=== PATIENT | female | born 1930 | race Caucasian/White ===

== ENCOUNTER 2018-01-24 01:39 | Observation (INO) | payer OTHER ==
[2018-01-24 02:10] LABS: Absolute Lymphocytes (CBC) 1.6 K/uL (0.7-4.9); Basophils % 0.7 % (0-1.3); Eosinophils % 3.4 % (0-4.4); Hematocrit 37.6 % (36.0-45.0); Lymphocytes % 15.7 % (15.3-44.8); MCH 28.1 pg (27.0-35.0); MCV 82.6 fL (80-100); MPV 7.5 fL (7.6-11.3); Monocytes % 9.8 % (3.3-12.3); RBC Red Blood Cell Count 4.55 M/uL (3.86-4.86)
[2018-01-24] MEDS ORDERED: MORPHINE 4 MG/ML SYR ONE ×2 (02:24→05:42)
[2018-01-24] MEDS ORDERED: ONDANSETRON 4 MG/2 ML VIAL ONE (02:24)
[2018-01-24 03:29] LABS: Albumin 2.7 g/dL (3.4-5.0); Bilirubin Direct 0.2 mg/dL (0-0.2); Bilirubin Total 0.5 mg/dL (0.2-1.0); Potassium 4.2 mmol/L (3.5-5.1); Protein, Total 7.5 g/dL (6.4-8.2)
[2018-01-24] MEDS ORDERED: cloNIDine HCl 0.1 MG TAB ONE (04:04)
[2018-01-24 05:37] LABS: Urine Blood 2+ (NEG); Urine Glucose NEGATIVE (NEG); Urine Protein NEGATIVE (NEG); Urine Specific Gravity 1.015 (1.005-1.030); Urine pH 6.5 (5.0-7.0)
[2018-01-24 05:40] LABS: Urine Bacteria <20 /HPF (<20); Urine Culture Reflex Order REFLEXED; Urine RBC <5 /HPF (NONE SEEN)
[2018-01-24] MEDS ORDERED: HYDROCODONE/APAP 10/325 TAB PO PRN (05:40)
[2018-01-24] MEDS ORDERED: ACETAMINOPHEN 500 MG TAB PO PRN (05:40)
[2018-01-24] MEDS ORDERED: ALPRAZOLAM 0.25 MG TABLET PO PRN (05:40)
--- NOTE | 2018-01-24 06:18 | ER ---
Nurse's Notes [facility] Name: Vida Teresa Age: 87 yrs Sex: Female : 1930 Arrival Date: 01/24/2018 Time: 01:40 Bed 8 Private MD: Diagnosis: Metastatic lung cancer Presentation: 01/24 01:42 Presenting complaint: EMS states: RIGHT FLANK FOR A MONTH, WORSE TONIGHT. Transition of fc care: [facility]. Onset of symptoms is unknown. Risk Assessment: Do you want to hurt yourself or someone else? Patient reports no desire to harm self or others. Initial Sepsis Screen: Does the patient meet any 2 criteria? No. Patient's initial sepsis screen is negative. Does the patient have a suspected source of infection? No. Patient's initial sepsis screen is negative. Care prior to arrival: Glucose check: 137. 01:42 Acuity: NAVEED 3 fc 01:42 Method Of Arrival: EMS: [facility] bp Triage Assessment: 01:44 General: Appears in no apparent distress. comfortable, Behavior is calm, cooperative, fc appropriate for age. Pain: Complains of pain in posterior aspect of right lateral abdomen and anterior aspect of right lateral abdomen Pain currently is 6 out of 10 on a pain scale. EENT: No deficits noted. Neuro: Level of Consciousness is awake, alert, obeys commands, Oriented to person, place, time, situation, Appropriate for age. Cardiovascular: No deficits noted. Respiratory: Airway is patent Respiratory effort is even, unlabored, Respiratory pattern is regular, symmetrical. GI: No signs and/or symptoms were reported involving the gastrointestinal system. : Reports pain in right flank(s). Derm: No deficits noted. Musculoskeletal: Circulation, motion, and sensation intact. Range of motion: intact in all extremities. Historical: - Allergies: 01:50 Hydrocodone-Acetaminophen; bp - PMHx: 01:44 Thyroid problem; High Cholesterol; fc - PSHx: 01:44 Cholecystectomy; fc - Immunization history:: Adult Immunizations up to date. - Social history:: Smoking status: Patient/guardian denies using tobacco. - Ebola Screening: : Patient negative for fever greater than or equal to 101.5 degrees Fahrenheit, and additional compatible Ebola Virus Disease symptoms Patient denies exposure to infectious person Patient denies travel to an Ebola-affected area in the 21 days before illness onset No symptoms or risks identified at this time. Screenin:47 Abuse screen: Denies threats or abuse. Denies injuries from another. Nutritional fc screening: No deficits noted. Tuberculosis screening: No symptoms or risk factors identified. Fall Risk None identified. No fall in past 12 months (0 pts). No secondary diagnosis (0 pts). No IV (0 pts). Ambulatory Aid- None/Bed Rest/Nurse Assist (0 pts). Gait- Normal/Bed Rest/Wheelchair (0 pts) Mental Status- Oriented to own ability (0 pts). Total Catalan Fall Scale indicates No Risk (0-24 pts). Assessment: 01:47 General: SEE TRIAGE NOTE. bp 03:30 Reassessment: PER RADIOLOGY, CT GROSSLY ABNORMAL, PT RETURNED TO CT FOR CONTRAST STUDY. bp 05:30 Reassessment: ALL CURRENT ORDERS COMPLETED, DISPO PENDING. bp 06:30 Reassessment: ADMIT IN PROCESS, BED ASSIGNED. bp 07:30 Reassessment: Nurse to call back for report. sv Vital Signs: 01:44 BP 149 / 74; Pulse 74; Resp 14; Temp 97.1; Pulse Ox 97% ; Weight 60.78 kg; Height 5 ft. fc 3 in. (160.02 cm); 03:30 BP 132 / 57; Pulse 71; Resp 14; Pulse Ox 96% ; bp 05:30 BP 140 / 61; Pulse 66; Resp 14; Pulse Ox 96% ; bp 06:30 BP 124 / 57; Pulse 69; Resp 14; Pulse Ox 96% ; bp 07:03 BP 135 / 60; Pulse 69; Resp 16; Pulse Ox 97% ; sv 08:00 BP 133 / 61; Pulse 68; Resp 16; Pulse Ox 97% ; sv 01:44 Body Mass Index 23.74 (60.78 kg, 160.02 cm) fc ED Course: 01:40 Patient arrived in ED. ds1 01:43 Triage completed. fc 01:44 Arm band placed on. fc 01:47 Patient has correct armband on for positive identification. Placed in gown. Bed in low fc position. Call light in reach. Side rails up X2. 01:49 Rod Lawler RN is Primary Nurse. bp 01:49 Inserted saline lock: 20 gauge in right antecubital area, using aseptic technique. bp 01:54 Art Knox MD is Attending Physician. tw4 02:[address] via stretcher. bq 02:55 CT completed. Patient tolerated procedure well. bq 02:55 Patient moved back from CT. bq 02:59 CT Stone Protocol In Process Unspecified. EDMS 04:01 CT completed. Patient tolerated procedure well. Patient moved to CT via stretcher. bq Patient moved back from CT. 04:25 Chest Abdomen Pelvis W Cont In Process Unspecified. EDMS 06:14 Nilesh Lino MD is Hospitalizing Provider. tw4 06:43 No provider procedures requiring assistance completed. Patient admitted, IV remains in bp place. Administered Medications: 02:23 Drug: morphine 2 mg Route: IVP; Site: right antecubital; bp 03:40 Follow up: Response: Pain is decreased bp 02:24 Drug: Zofran 4 mg Route: IVP; Site: right antecubital; bp 03:41 Follow up: Response: No adverse reaction bp 05:42 Drug: morphine 4 mg Route: IVP; Site: right antecubital; bp 06:04 Follow up: Response: Pain is decreased bp Outcome: 06:18 Decision to Hospitalize by Provider. tw4 07:51 Admitted to Tele accompanied by tech, via wheelchair, room 230, with chart, Report sv called to Malinda CARMONA 07:51 Condition: stable 07:51 Instructed on the need for admit. 08:02 Patient left the ED. sv Signatures: Dispatcher [employer] Anh Juares RN RN Carolin Estrada Felicia, RN RN Sary Adrian ds1 Rod Lawler RN RN bp Art Knox MD MD tw4 Corrections: (The following items were deleted from the chart) 01:49 01:47 General: SEE TRIAGE NOTE. fc bp 01:50 01:44 Allergies: Hydrocodone-Acetaminophen; fc bp 01:50 01:44 Ebola Screening: Patient negative for fever greater than or equal to 101.5 bp degrees Fahrenheit, and additional compatible Ebola Virus Disease symptoms Patient denies exposure to infectious person Patient denies travel to an Ebola-affected area in the 21 days before illness onset No symptoms or risks identified at this time fc 01:51 01:42 Presenting complaint: EMS states: RIGHT FLANK FOR A MONTH, WORSE TONIGHT fc bp 01:51 01:42 Transition of care: [facility] bp 01:51 01:42 Onset of symptoms is unknown. bp 01: 01:42 Risk Assessment: Do you want to hurt yourself or someone else? Patient reports no bp desire to harm self or others. : 01:42 Initial Sepsis Screen: Does the patient meet any 2 criteria? No. Patient's bp initial sepsis screen is negative. Does the patient have a suspected source of infection? No. Patient's initial sepsis screen is negative. : 01:42 Method Of Arrival: EMS: [facility] bp
--- NOTE | 2018-01-24 06:18 | EDPHYS ---
Physician Documentation [facility] Name: Vida Teresa Age: 87 yrs Sex: Female : 1930 Arrival Date: 01/24/2018 Time: 01:40 Bed 8 Private MD: ED Physician Art Knox HPI: 01/24 02:35 This 87 yrs old Female presents to ER via EMS with complaints of Abdominal tw4 Pain. 02:35 The patient complains of pain in the right mid back. The pain radiates to the right mid tw4 back. Onset: The symptoms/episode began/occurred today. Modifying factors: The symptoms are alleviated by nothing. the symptoms are aggravated by nothing. Associated signs and symptoms: The patient has no apparent associated signs or symptoms. The patient has not experienced similar symptoms in the past. Historical: - Allergies: 01:50 Hydrocodone-Acetaminophen; bp - PMHx: 01:44 Thyroid problem; High Cholesterol; fc - PSHx: 01:44 Cholecystectomy; fc - Immunization history:: Adult Immunizations up to date. - Social history:: Smoking status: Patient/guardian denies using tobacco. - Ebola Screening: : Patient negative for fever greater than or equal to 101.5 degrees Fahrenheit, and additional compatible Ebola Virus Disease symptoms Patient denies exposure to infectious person Patient denies travel to an Ebola-affected area in the 21 days before illness onset No symptoms or risks identified at this time. ROS: 06:47 Constitutional: Negative for fever, chills, and weight loss, Cardiovascular: Negative tw4 for chest pain, palpitations, and edema, Respiratory: Negative for shortness of breath, cough, wheezing, and pleuritic chest pain. 06:47 MS/Extremity: Negative for injury and deformity, Skin: Negative for injury, rash, and discoloration, Neuro: Negative for headache, weakness, numbness, tingling, and seizure. 06:47 Abdomen/GI: Positive for abdominal pain, Negative for nausea and vomiting, nausea, vomiting, and diarrhea, nausea, vomiting. 06:47 Back: Positive for flank pain, on the right, radiated pain. Exam: 06:47 Constitutional: This is a well developed, well nourished patient who is awake, alert, tw4 and in no acute distress. Head/Face: Normocephalic, atraumatic. Chest/axilla: Normal chest wall appearance and motion. Nontender with no deformity. No lesions are appreciated. Cardiovascular: Regular rate and rhythm with a normal S1 and S2. No gallops, murmurs, or rubs. Normal PMI, no JVD. No pulse deficits. Respiratory: Lungs have equal breath sounds bilaterally, clear to auscultation and percussion. No rales, rhonchi or wheezes noted. No increased work of breathing, no retractions or nasal flaring. 06:47 MS/ Extremity: Pulses equal, no cyanosis. Neurovascular intact. Full, normal range of motion. 06:47 Abdomen/GI: Inspection: abdomen appears normal, Bowel sounds: normal, Palpation: moderate abdominal tenderness. 06:47 Back: pain, CVA tenderness, is noted on the right. Vital Signs: 01:44 BP 149 / 74; Pulse 74; Resp 14; Temp 97.1; Pulse Ox 97% ; Weight 60.78 kg; Height 5 ft. fc 3 in. (160.02 cm); 03:30 BP 132 / 57; Pulse 71; Resp 14; Pulse Ox 96% ; bp 05:30 BP 140 / 61; Pulse 66; Resp 14; Pulse Ox 96% ; bp 06:30 BP 124 / 57; Pulse 69; Resp 14; Pulse Ox 96% ; bp 07:03 BP 135 / 60; Pulse 69; Resp 16; Pulse Ox 97% ; sv 08:00 BP 133 / 61; Pulse 68; Resp 16; Pulse Ox 97% ; sv 01:44 Body Mass Index 23.74 (60.78 kg, 160.02 cm) MDM: 02:00 Patient medically screened. tw4 06:47 Differential diagnosis: nephrolithiasis, UTI. Data reviewed: vital signs, nurses notes. tw4 Counseling: I had a detailed discussion with the patient and/or guardian regarding: the historical points, exam findings, and any diagnostic results supporting the discharge/admit diagnosis. Physician consultation: Nilesh Lino MD regarding admission, patient's condition, need to evaluate the patient as soon as possible, and will see patient in ED. 01/24 01:56 Order name: Amylase, Serum tw4 01/24 01:56 Order name: Basic Metabolic Panel tw4 01/24 01:56 Order name: CBC with Diff; Complete Time: 03:24 tw4 01/24 01:56 Order name: Creatinine for Radiology; Complete Time: 03:24 tw4 01/24 01:56 Order name: Hepatic Function tw4 01/24 01:56 Order name: Lipase tw4 01/24 01:56 Order name: Urine Microscopic Only tw4 01/24 05:31 Order name: Urine Dipstick--Ancillary (enter results) ms 01/24 05:32 Order name: Urine Dipstick-Ancillary EDMS 01/24 05:42 Order name: Urine Culture EDWY 01/24 05:45 Order name: Urinalysis EDMS 01/24 05:45 Order name: CBC with Automated Diff EDMS 01/24 05:45 Order name: CBC with Automated Diff EDMS 01/24 05:45 Order name: Comprehensive Metabolic Panel EDWY 01/24 01:56 Order name: IV Saline Lock; Complete Time: 02:13 tw4 01/24 01:56 Order name: Labs collected and sent; Complete Time: 02:13 tw4 01/24 01:56 Order name: Urine Dipstick-Ancillary (obtain specimen); Complete Time: 06:06 4 01/24 02:13 Order name: CT Stone Protocol bp 01/24 03:34 Order name: Chest Abdomen Pelvis W Cont EDWY 01/24 05:45 Order name: Heart Healthy EDWY 01/24 05:45 Order name: Comprehensive Metabolic Panel EDW[facility] 01/24 05:45 Order name: Magnesium EDMS 01/24 05:45 Order name: Magnesium EDMS 01/24 05:45 Order name: Phosphorus EDMS 01/24 05:45 Order name: Phosphorus EDMS Administered Medications: 02:23 Drug: morphine 2 mg Route: IVP; Site: right antecubital; bp 03:40 Follow up: Response: Pain is decreased bp 02:24 Drug: Zofran 4 mg Route: IVP; Site: right antecubital; bp 03:41 Follow up: Response: No adverse reaction bp 05:42 Drug: morphine 4 mg Route: IVP; Site: right antecubital; bp 06:04 Follow up: Response: Pain is decreased bp Disposition: 01/24/18 06:18 Hospitalization ordered by Nilesh Lino for Inpatient Admission. Preliminary diagnosis is Metastatic lung cancer. - Bed requested for Telemetry/MedSurg (Inpatient). - Status is Inpatient Admission. sv - Condition is Stable. - Problem is new. - Symptoms have improved. UTI on Admission? No Signatures: Dispatcher [employer] EDW[facility] Anh Morris, RN RN Lucie Noyola, RN RN Fabby Arana ms, Brian, RN RN Art Knox MD MD tw4 Corrections: (The following items were deleted from the chart) 01:50 01:44 Allergies: Hydrocodone-Acetaminophen; bp 01:50 01:44 Ebola Screening: Patient negative for fever greater than or equal to 101.5 bp degrees Fahrenheit, and additional compatible Ebola Virus Disease symptoms Patient denies exposure to infectious person Patient denies travel to an Ebola-affected area in the 21 days before illness onset No symptoms or risks identified at this time 03:33 03:28 Thorax W/ Con+CT.RAD.BRZ ordered. EDMS EDMS 03:34 03:28 Abdomen Pelvis W Con+CT.RAD.BRZ ordered. EDWY EDMS 06:18 06:18 Hospitalization Ordered by Nilesh Lino MD for Inpatient Admission. Preliminary ms diagnosis is Metastatic lung cancer. Bed requested for Telemetry/MedSurg (Inpatient). Status is Inpatient Admission. Condition is Stable. Problem is new. Symptoms have improved. UTI on Admission? No. tw4 08:02 06:18 01/24/2018 06:18 Hospitalization Ordered by Nilesh Lino MD for Inpatient sv Admission. Preliminary diagnosis is Metastatic lung cancer. Bed requested for Telemetry/MedSurg (Inpatient). Status is Inpatient Admission. Condition is Stable. Problem is new. Symptoms have improved. UTI on Admission? No. ms
--- NOTE | 2018-01-24 07:49 | RAD REPORT ---
EXAM DESCRIPTION: CT - Stone Protocol - 01/24/2018 6:55 am CLINICAL HISTORY: FLANK PAIN<Reason For Exam>FLANK PAIN Patient details the flank pain as progressive over the last day. A preliminary report was provided at the time of the study and reviewed prior to final report. COMPARISON: Prior CT study July 2010 TECHNIQUE: Axial [address] imaging of the abdomen and pelvis was performed without IV contrast. No IV contrast was given because of allergy, abnormal renal function, patient refusal or physician re quest. Oral contrast was given. All CT scans are performed using dose optimization technique as appropriate and may include automated exposure control or mA/KV adjustment according to patient size. FINDINGS: A 7 millimeter noncalcified pulmonary nodule is present posterior lower right lung field ( image 6/91). There are multiple additional 5 mm or less noncalcified pulmonary nodules scattered thro ughout both lung bases. No cardiomegaly or pericardial effusion. Liver shows an extensive heterogeneity of the attenuation pattern on noncontrast imaging. There is a large area of diminished attenuation involving most of the midline left lobe. A large 9 centimeter ar ea of diminished attenuation is present in the posterior right lobe. There are several additional davidson iably sized low-density areas in the liver. No acute splenic finding. No pancreatic or peripancreatic abnormality. Cholecystectomy clips are present. No biliary tree dilatation. Renal function cannot be assessed. No hydronephrosis of either kidney. There is extensive heterogenei ty of the left renal parenchyma. A few punctate calcifications are present. This is nonspecific on a noncontrast study and could be an extensive infectious/ inflammatory process or a malignant process. Perinephric stranding is present. A few small periaortic lymph nodes are present at the level of the renal vasculature. No significant adrenal finding. Isodense renal masses and pyelonephritis cannot be excluded in the absence of IV contrast. The urinary bladder is without significant finding. No dilated bowel loops or bowel wall thickening. No free air, free fluid or inflammatory stranding. N o large hernia findings. No bulky lymphadenopathy or omental thickening. Numerous phleboliths are pre sent. No uterine or ovarian abnormality suspected. Bony degenerative changes are present. No lytic or blastic destructive process. IMPRESSION: Grossly abnormal liver with large in moderate areas of diminished attenuation. Numerous noncalcified pulmonary nodules. Diffuse heterogeneity of the left renal parenchyma. Liver findings are favored to be extensive metastatic disease rather than primary hepatic malignancy or unusual presentation of fatty infiltration. Pulmonary nodules are very likely metastatic as well. Given the collective findings, left renal abnormality is favored to be malignancy over infectious/ in flammatory process. If tolerable by the patient, follow-up contrast enhanced CT chest, abdomen and pelvis imaging would b e recommended. Full assessment is limited is the absence of IV contrast.
[2018-01-24] MEDS ORDERED: HYDROCORTISONE SUC 100 MG INJ IV SCH (08:00)
--- NOTE | 2018-01-24 08:41 | RAD REPORT ---
EXAM DESCRIPTION: CT - Chest Abdomen Pelvis W Cont - 01/24/2018 4:25 am CLINICAL HISTORY: ABN CT STONE -- EVAL FOR METS<Reason For Exam>ABN CT STONE -- EVAL FOR METS Grossly abnormal CT abdomen and pelvis imaging with lung masses, liver masses and abnormal left kidne y. A preliminary report was provided at the time of the study and reviewed prior to final report. COMPARISON: Stone Protocol dated 01/24/2018Noncontrast CT study same date TECHNIQUE: Following dynamic enhancement using 100 milliliters nonionic IV contrast, axial imaging o f the chest, abdomen and pelvis was performed. Biphasic technique was utilized through the abdomen. No oral contrast administered. All CT scans are performed using dose optimization technique as appropriate and may include automated exposure control or mA/KV adjustment according to patient size. FINDINGS: In the anterior superior left upper lobe (image 18/ 84) there is an approximately 3.5 cm A P x 3.5 cm TR lobulated malignant mass. There is stranding that extends to the anterior pleural avelino n. In the medial left upper lobe (image 19/84) there is an 11 millimeter mass. Several additional non calcified pulmonary nodules are scattered in the lung parenchyma largest at 8 mm. Most are under 5 mm . No pleural effusion, pleural thickening or pneumothorax. No significant aortic or pulmonary arteria l tree finding. An 11 x 6 mm area of nodularity at the left hilum is probably malignant lymph node. N o pulmonary emboli a noted on this non PE protocol study. Aortic calcifications are present without a cute aortic finding. No bulky mediastinal adenopathy. No cardiomegaly or pericardial effusion. No carolee st wall mass or axillary lymphadenopathy. The liver is grossly abnormal. There is a confluence of numerous low-density masses filling the midli ne left lobe. Largest single lesion is 3.8 cm. There is a large 10 x 5 centimeter area of diminished attenuation in the posteromedial right lobe that is likely the confluence of multiple lesions. Additi onal scattered liver lesions are present in the right and left lobes. No portal vein thrombus. Cholec ystectomy clips are present with no biliary tree dilatation. No spleen or pancreatic abnormality. No significant primary adrenal process. Prompt right renal function is present. No right-sided hydronephrosis. In the posterior mid right kid lalit there is a 3 x 1.7 centimeter area of diminished attenuation. This appears to be discrete with a slightly greater attenuation value than the non dilated calices. There are scattered additional cysts in the right kidney. No right-sided perinephric stranding. Left kidney is grossly abnormal. There is heterogeneous, diminished attenuation throughout the renal parenchyma. There is mild dilatation of the lower pole calices on the left probably from extrinsic co mpression of the collecting system. Multiple clustered left-sided periaortic lymph nodes are present at the level of the vasculature. The thrombus of the left renal vein is suspected. Stranding is prese nt in the left-sided perinephric fat. No dilated bowel loops or focal bowel wall thickening. No acute GI findings seen. No acute or destructive bony process. No significant vascular findings. IMPRESSION: Approximately 3.5 centimeter malignant mass in the left upper lobe with numerous metasta tic nodules scattered in the lung parenchyma. Abnormal left hilar lymph nodes seen. Numerous neoplastic lesions throughout the liver parenchyma. Metastatic process is greatly favored ov er primary liver process. Grossly abnormal left kidney with diminished attenuation, heterogeneous enhancement and suspected lef t portal vein thrombus. There are left periaortic lymph nodes at the level of the renal vasculature. Ill-defined low-density mass posterior right kidney. The left renal findings favor a malignant process over an aggressive infectious/ inflammatory process . A primary left renal malignant process could explain the lung parenchymal, liver and right renal fi ndings. Given the size, the left upper lobe finding could be a primary malignancy and could explain the other pulmonary nodules and liver findings. A lung metastasis to the kidney is not common.
--- NOTE | 2018-01-24 08:50 | P.HP ---
Certification for Inpatient Patient admitted to: Inpatient With expected LOS: >2 Midnights Patient will require the following post-hospital care: None Practitioner: I am a practitioner with admitting privileges, knowledge of patient current condition, hospital course, and medical plan of care. Services: Services provided to patient in accordance with Admission requirements found in Title 42 Section 412.3 of the Code of Federal Regulations Patient History Date of Service: 01/23/18 Reason for admission: Persistent neck pain and generalized weakness History of Present Illness: Patient is an 87-year-old female who was a patient over at [email or web address] which is an assisted living,who came into the hospital with persistent pain in her neck. This has been going on for the last 10-14 days. She was started on anti- inflammatory this past Wednesday. She had very little relief. Prior to this she has been otherwise very healthy. Since her pain was not much better decision was made to further evaluate the patient. She was brought into the emergency room for further evaluation. In the emergency room her workup revealed possible renal cell carcinoma with metastatic disease. This study was done without contrast. A contrast study is pending at this time. Will get Oncology to see the patient as well. She may need further study including bone scan to evaluate for possible bone metastasis. Allergies hydrocodone Adverse Reaction (Verified 01/24/18 07:08) Nausea/Vomiting - Past Medical/Surgical History -: Hypertension -: hypothyroidism Past Surgical History: Patient denies surgical history - Family History Father Family History: Reviewed- Non-Contributory - Social History Smoking Status: Never smoker Alcohol use: No CD- Drugs: No Review of Systems 10-point ROS is otherwise unremarkable Physical Examination - Vital Signs Temperature: 97.1 F Blood Pressure: 133/61 Pulse: 68 Respirations: 16 - Physical Exam General: Alert, In no apparent distress, Oriented x3 HEENT: Atraumatic, PERRLA, Mucous membr. moist/pink, EOMI, Sclerae nonicteric Neck: Supple, 2+ carotid pulse no bruit, No LAD, Without JVD or thyroid abnormality Respiratory: Clear to auscultation bilaterally, Normal air movement Cardiovascular: Regular rate/rhythm, Normal S1 S2, No murmurs Gastrointestinal: Normal bowel sounds, Soft and benign, Non-distended, No tenderness Musculoskeletal: No clubbing, No swelling, No tenderness Integumentary: No rashes Neurological: Normal gait, Normal speech, Normal strength at 5/5 x4 extr, Normal tone, Sensation intact, Cranial nerves 3-12 intact, Normal affect Lymphatics: No axilla or inguinal lymphadenopathy - Studies Laboratory Data (last 24 hrs) 01/24/18 01:55: Creatinine 1.10 01/24/18 01:55: WBC 9.9, Hgb 12.8, Hct 37.6, Plt Count 385 01/24/18 01:55: Sodium 137, Potassium 4.2, BUN 19 H, Creatinine 1.20, Glucose 126 H, Total Bilirubin 0.5, AST 36, ALT 24, Alkaline Phosphatase 163 H, Amylase 59, Lipase 164 Assessment & Plan - Problems (Diagnosis) (1) Metastatic renal cell carcinoma Current Visit: Yes Status: Acute - Plan Plan: 1. Pain control 2. CT with contrast 3. IV hydration 4. Oncology Consult 5. GI and DVT prophylaxis Discharge Plan: Home Plan to discharge in: Greater than 2 days - Advance Directives Does patient have a Living Will: No Does patient have a Durable POA for Healthcare: No - Code Status/Comfort Care Code Status Assessed: Yes Code Status: Full Code Critical Care: No Time Spent Managing PTS Care (In Minutes): 50
[2018-01-24] MEDS: NA CHLORIDE 0.9% 1,000 ML IV SCH ×2 (08:58→19:39)
[2018-01-24] MEDS ORDERED: ENOXAPARIN 30 MG/0.3 ML SQ SCH (09:00)
[2018-01-24] MEDS ORDERED: MAGNESIUM HYDROXIDE 8% 30 ML PO PRN (11:54)
[2018-01-24] MEDS ORDERED: ENOXAPARIN 60 MG/0.6 ML SQ SCH ×2 (12:00→21:00)
--- NOTE | 2018-01-24 12:48 | PN ---
Date of Progress Note: 01/24/2018 Subjective: The patient is seen and examined. Chart reviewed and case discussed with RN, Dr. Burrows, and family at the bedside including both sons. Treatment plan explained. All questions answered. Review of Systems: Negative except as above. Medications: List reviewed. Physical Examination: Vital Signs: Temperature 97.4, heart rate 68, blood pressure 159/70, respirations 24, O2 98% on room air. General: Awake, alert, oriented x3, in some mild distress. Elderly female, frail, ill-appearing. CV: S1, S2. No murmurs. Regular rate and rhythm. Peripheral pulses present. Respiratory: Moving air well bilaterally. No wheezing or stridor. Gastrointestinal: Abdomen is soft, nontender, nondistended. Positive bowel sounds. Extremities: No clubbing, cyanosis, edema. Neuro: Nonfocal. Laboratory Data: Sodium 137, potassium 4.2, chloride 105, CO2 26, BUN 19, creatinine 1.2, glucose 126, calcium 8.8. WBC 9.9, H and H 12.8 and 37.6, platelets 385. UA; negative nitrite, trace leukocyte esterase, 5-10 WBC, less than [address] chest, abdomen and pelvis with contrast; approximately 3.5 cm malignant mass in the left upper lobe with numerous metastatic nodules scattered in the lung parenchyma, abnormal left hilar lymph nodes seen, numerous neoplastic lesions throughout the liver parenchyma. Metastatic process is greatly favored over primary liver process, grossly abnormal left kidney with diminishing attenuation, heterogeneous enhancement and suspected left portal vein thrombus. There are left para-aortic lymph nodes at the level of the renal vasculature. Ill-defined low density mass in posterior right kidney. Left renal findings favor malignant process over aggressive infectious inflammatory process. A primary left renal malignant process could explain lung parenchyma, liver and right renal findings. Given the size of left upper lobe, lung finding could be primary malignancy and could explain the other pulmonary nodules and liver findings. Lung mass to the kidney, not common. Assessment And Plan: 1. Metastatic cancer, unclear primary, may be renal versus pulmonary. The patient will need a tissue biopsy and workup. I spoke with Dr. Burrows who will see the patient once tissue biopsy is obtained and diagnosis is made to discuss treatment options including chemotherapy and possible radiation therapy. We will obtain Interventional Radiology biopsy, CT-guided liver versus lung. We will contact radiologist csm consultant. 2. Intractable pain. Continue with IV pain medications. Secondary to above. 3. Essential hypertension, stable. 4. Hypothyroidism, stable. 5. Left portal vein thrombus. We will start on therapeutic Lovenox. 6. Mixed hyperlipidemia. We will hold statin due to liver mass. Overall poor prognosis. Code status is full. Plan: Resume home medications as appropriate. Follow up with urine culture. UA is equivocal. The patient is asymptomatic. Hold off on antibiotics for now. /SAQIB Voice ID: [id number] Report ID: [id number] MTDD
[2018-01-24] MEDS ORDERED: FUROSEMIDE 20 MG TABLET PO SCH (13:00)
[2018-01-24] MEDS: ONDANSETRON 4 MG/2 ML VIAL IV PRN ×2 (13:10→19:40)
[2018-01-24] MEDS: PANTOPRAZOLE 40MG TABLET PO SCH (13:10)
[2018-01-24] MEDS: FERROUS SULFATE 325 MG TAB PO SCH (13:10)
[2018-01-24] MEDS: DOCUSATE NA 100 MG CAP PO SCH ×2 (13:10→20:57)
[2018-01-24] MEDS: MORPHINE 2 MG/ML SYR IV PRN ×2 (13:11→19:36)
[2018-01-24 13:29] LABS: Potassium 4.5 mmol/L (3.5-5.1)
[2018-01-24] MEDS ORDERED: HOME MED 1 EA UNK (Pravastatin Sodium [Pravastatin Sodium] 10 MG) PO SCH (21:00)
[2018-01-25 05:21] LABS: Absolute Lymphocytes (CBC) 1.3 K/uL (0.7-4.9); Absolute Neutrophil 7.7 K/uL (1.8-8.0); Basophils % 1.1 % (0-1.3); Eosinophils % 2.7 % (0-4.4); Hematocrit 33.7 % (36.0-45.0); Lymphocytes % 12.8 % (15.3-44.8); MCH 27.9 pg (27.0-35.0); MCV 82.4 fL (80-100); MPV 7.9 fL (7.6-11.3); Monocytes % 9.3 % (3.3-12.3); RBC Red Blood Cell Count 4.08 M/uL (3.86-4.86)
[2018-01-25] MEDS: MORPHINE 2 MG/ML SYR IV PRN (05:24)
[2018-01-25 05:25] LABS: Albumin 2.4 g/dL (3.4-5.0); Bilirubin Total 0.4 mg/dL (0.2-1.0); Magnesium 2.3 mg/dL (1.8-2.4); Phosphorus 3.2 mg/dL (2.5-4.9); Potassium 4.2 mmol/L (3.5-5.1); Protein, Total 6.6 g/dL (6.4-8.2)
[2018-01-25 05:39] LABS: Protime INR 1.14
[2018-01-25] MEDS ORDERED: LEVOTHYROXINE SOD 0.1 MG TAB PO SCH (06:00)
--- NOTE | 2018-01-25 08:32 | P.CNS ---
Date of Consult: 01/25/18 Reason for Consult: Metastatic lung disease Chief Complaint: Persistent neck pain and generalized weakness History of Present Illness: Patient is 87 years of age previously well does not have any significant medical problems apparently she hurt her neck is been complaining of some pain in the upper and midback radiating to her arms was found to have metastatic disease to the lungs liver and kidneys she denies any fever weight loss quit smoking a very long time ago Allergies hydrocodone Adverse Reaction (Verified 01/24/18 07:08) Nausea/Vomiting Home Medications: Docusate Sodium 100 mg PO BID 01/24/18 Ferrous Sulfate 325 mg PO DAILY 01/24/18 Furosemide 20 mg PO DAILY 01/24/18 Generlac 30 ml PO BID 01/24/18 Levothyroxine Sodium 100 mcg PO DAILY 01/24/18 Mag Hydroxide 8% [Milk Of Magnesia*] 30 ml PO Q6HP PRN 01/24/18 Omeprazole 20 mg PO DAILY 01/24/18 Pravastatin Sodium 10 mg PO BEDTIME 01/24/18 - Past Medical/Surgical History Diabetic: No -: Hypertension -: hypothyroidism -: Lap Fiorella - Family History Father History Unknown: Yes Family History: Reviewed- Non-Contributory Mother History Unknown: Yes - Social History Alcohol use: No CD- Drugs: No Caffeine use: Yes [facility] Review of Systems 10-point ROS is otherwise unremarkable General: Weakness Physical Examination Temp Pulse Resp BP Pulse Ox 98.2 F 91 H 20 118/58 L 93 01/25/18 04:00 01/25/18 04:00 01/25/18 04:00 01/25/18 04:00 01/25/18 04:00 General: Oriented x3 HEENT: Atraumatic Neck: Supple Respiratory: Clear to auscultation bilaterally, Normal air movement Cardiovascular: No edema, Regular rate/rhythm - Problems (1) Metastatic renal cell carcinoma Current Visit: Yes Status: Acute Plan: Patient is 87 years of age admitted with neck pain she has diffuse metastatic disease most likely renal origin patient is mildly anemic alkaline phosphatase is mildly elevated patient schedule for a liver biopsy tomorrow prognosis very poor consider hospice care
[2018-01-25] MEDS: NA CHLORIDE 0.9% 1,000 ML IV SCH (08:40)
[2018-01-25] MEDS ORDERED: HOME MED 1 EA UNK (Omeprazole [Omeprazole] 20 MG) PO SCH (09:00)
[2018-01-25] MEDS: PANTOPRAZOLE 40MG TABLET PO SCH (09:57)
[2018-01-25] MEDS: DOCUSATE NA 100 MG CAP PO SCH (09:57)
[2018-01-25] MEDS: FERROUS SULFATE 325 MG TAB PO SCH (09:57)
[2018-01-25] MEDS ORDERED: TRAMADOL HCL 50 MG TAB PO PRN (10:02)
--- NOTE | 2018-01-25 14:03 | P.PN ---
Subjective Chief Complaint: Persistent neck pain and generalized weakness Physical Examination - Vital Signs Temperature: 97.5 F Blood Pressure: 129/60 Pulse: 75 Respirations: 16 Pulse Ox (%): 95 Assessment & Plan - Problems (Diagnosis) (1) Metastatic renal cell carcinoma Current Visit: Yes Status: Acute - Plan Plan: 1. Pain control 2. CT with contrast 3. IV hydration 4. Oncology Consult 5. GI and DVT prophylaxis - Advance Directives Does patient have a Living Will: Yes Does patient have a Durable POA for Healthcare: No - Code Status/Comfort Care Code Status: Full Code
--- NOTE | 2018-01-25 14:37 | P.PN ---
Date of Service: 01/25/18 Have arranged for [facility] to see patient and give Lovenox injections along with nursing at [facility]. Unfortunately, patient was not able to get biopsy performed until February 03 at 10:00 a.m.. Patient needs to be there at 9:00 a.m.. Patient will be kept NPO prior to midnight. Will give Lovenox subcutaneous twice a day but we will hold dose of Lovenox that is scheduled for the evening of January 31. That way it will be over 12 hr since last Lovenox injection prior to the biopsy. Moitor neurologically as patient did not have MRI in hospital(patient risk of brain mets with renal cell carcinoma and now on lovenox). Patient will follow up with Oncology in 1-2 weeks.
--- NOTE | 2018-01-25 14:41 | P.DS ---
Admission Date: 01/24/18 Discharge Date: 01/25/18 Primary Care Provider: Dr. Lino Disposition: ROUTINE DISCHARGE Discharge Condition: GOOD Reason for Admission: Persistent neck pain and generalized weakness Consultations: Pulmonary-Dr. Moreau Procedures: CT scan: EXAM DESCRIPTION: CT - Chest Abdomen Pelvis W Cont - 01/24/2018 4:25 am CLINICAL HISTORY: ABN CT STONE -- EVAL FOR METS<Reason For Exam>ABN CT STONE - - EVAL FOR METS Grossly abnormal CT abdomen and pelvis imaging with lung masses, liver masses and abnormal left kidney. A preliminary report was provided at the time of the study and reviewed prior to final report. COMPARISON: Stone Protocol dated 01/24/2018Noncontrast CT study same date TECHNIQUE: Following dynamic enhancement using 100 milliliters nonionic IV contrast, axial imaging of the chest, abdomen and pelvis was performed. Biphasic technique was utilized through the abdomen. No oral contrast administered. All CT scans are performed using dose optimization technique as appropriate and may include automated exposure control or mA/KV adjustment according to patient size. FINDINGS: In the anterior superior left upper lobe (image 18/ 84) there is an approximately 3.5 cm AP x 3.5 cm TR lobulated malignant mass. There is stranding that extends to the anterior pleural margin. In the medial left upper lobe (image 19/84) there is an 11 millimeter mass. Several additional noncalcified pulmonary nodules are scattered in the lung parenchyma largest at 8 mm. Most are under 5 mm. No pleural effusion, pleural thickening or pneumothorax. No significant aortic or pulmonary arterial tree finding. An 11 x 6 mm area of nodularity at the left hilum is probably malignant lymph node. No pulmonary emboli a noted on this non PE protocol study. Aortic calcifications are present without acute aortic finding. No bulky mediastinal adenopathy. No cardiomegaly or pericardial effusion. No chest wall mass or axillary lymphadenopathy. The liver is grossly abnormal. There is a confluence of numerous low-density masses filling the midline left lobe. Largest single lesion is 3.8 cm. There is a large 10 x 5 centimeter area of diminished attenuation in the posteromedial right lobe that is likely the confluence of multiple lesions. Additional scattered liver lesions are present in the right and left lobes. No portal vein thrombus. Cholecystectomy clips are present with no biliary tree dilatation. No spleen or pancreatic abnormality. No significant primary adrenal process. Prompt right renal function is present. No right-sided hydronephrosis. In the posterior mid right kidney there is a 3 x 1.7 centimeter area of diminished attenuation. This appears to be discrete with a slightly greater attenuation value than the non dilated calices. There are scattered additional cysts in the right kidney. No right-sided perinephric stranding. Left kidney is grossly abnormal. There is heterogeneous, diminished attenuation throughout the renal parenchyma. There is mild dilatation of the lower pole calices on the left probably from extrinsic compression of the collecting system. Multiple clustered left-sided periaortic lymph nodes are present at the level of the vasculature. The thrombus of the left renal vein is suspected. Stranding is present in the left-sided perinephric fat. No dilated bowel loops or focal bowel wall thickening. No acute GI findings seen. No acute or destructive bony process. No significant vascular findings. IMPRESSION: Approximately 3.5 centimeter malignant mass in the left upper lobe with numerous metastatic nodules scattered in the lung parenchyma. Abnormal left hilar lymph nodes seen. Numerous neoplastic lesions throughout the liver parenchyma. Metastatic process is greatly favored over primary liver process. Grossly abnormal left kidney with diminished attenuation, heterogeneous enhancement and suspected left portal vein thrombus. There are left periaortic lymph nodes at the level of the renal vasculature. Ill-defined low-density mass posterior right kidney. The left renal findings favor a malignant process over an aggressive infectious / inflammatory process. A primary left renal malignant process could explain the lung parenchymal, liver and right renal findings. Given the size, the left upper lobe finding could be a primary malignancy and could explain the other pulmonary nodules and liver findings. A lung metastasis to the kidney is not common. CT scan: COMPARISON: Prior CT study July 2010 TECHNIQUE: Axial [address] imaging of the abdomen and pelvis was performed without IV contrast. No IV contrast was given because of allergy, abnormal renal function, patient refusal or physician request. Oral contrast was given. All CT scans are performed using dose optimization technique as appropriate and may include automated exposure control or mA/KV adjustment according to patient size. FINDINGS: A 7 millimeter noncalcified pulmonary nodule is present posterior lower right lung field (image 6/91). There are multiple additional 5 mm or less noncalcified pulmonary nodules scattered throughout both lung bases. No cardiomegaly or pericardial effusion. Liver shows an extensive heterogeneity of the attenuation pattern on noncontrast imaging. There is a large area of diminished attenuation involving most of the midline left lobe. A large 9 centimeter area of diminished attenuation is present in the posterior right lobe. There are several additional variably sized low-density areas in the liver. No acute splenic finding. No pancreatic or peripancreatic abnormality. Cholecystectomy clips are present. No biliary tree dilatation. Renal function cannot be assessed. No hydronephrosis of either kidney. There is extensive heterogeneity of the left renal parenchyma. A few punctate calcifications are present. This is nonspecific on a noncontrast study and could be an extensive infectious/ inflammatory process or a malignant process. Perinephric stranding is present. A few small periaortic lymph nodes are present at the level of the renal vasculature. No significant adrenal finding. Isodense renal masses and pyelonephritis cannot be excluded in the absence of IV contrast. The urinary bladder is without significant finding. No dilated bowel loops or bowel wall thickening. No free air, free fluid or inflammatory stranding. No large hernia findings. No bulky lymphadenopathy or omental thickening. Numerous phleboliths are present. No uterine or ovarian abnormality suspected. Bony degenerative changes are present. No lytic or blastic destructive process. IMPRESSION: Grossly abnormal liver with large in moderate areas of diminished attenuation. Numerous noncalcified pulmonary nodules. Diffuse heterogeneity of the left renal parenchyma. Liver findings are favored to be extensive metastatic disease rather than primary hepatic malignancy or unusual presentation of fatty infiltration. Pulmonary nodules are very likely metastatic as well. Given the collective findings, left renal abnormality is favored to be malignancy over infectious/ inflammatory process. If tolerable by the patient, follow-up contrast enhanced CT chest, abdomen and pelvis imaging would be recommended. Full assessment is limited is the absence of IV contrast. - Problems (1) Abnormal CT scan Status: Acute (2) Hypothyroidism Status: Acute (3) Hyperlipidemia Status: Acute (4) Metastatic renal cell carcinoma Status: Acute Brief History of Present Illness: 87-year-old female presented emergency room with neck pain and generalized weakness. Patient came to the ER and had an abnormal CT scan showing multiple findings including liver mass, lung mass, left kidney mass. This was all suspicious for carcinoma stage IV. Patient was admitted for further evaluation. Hospital Course: Patient found to have abnormal CT scan showing multiple abnormalities including 3.5 cm malignant mass in the left upper lobe with numerous metastatic nodules scattered in the lung parenchyma. Abnormal left hilar lymph node seen. Numerous neoplastic lesions throughout the liver parenchyma noted process was highly favored. Grossly abnormal left kidney with diminished attenuation, heterogeneous enhancement and suspected left portal vein thrombus was also identified. Ill-defined low-density mass posterior right kidney was also noted. Left kidney findings favored more malignant process over aggressive infectious/ inflammatory process. This was addressed in detail with the family and patient. Pulmonology was consulted. Pulmonology felt this was likely renal cell carcinoma with metastasis. Pulmonology recommended hospice. Advanced directives address in detail including in the possibility of biopsy. Family has opted to consider biopsy. Family also reports the patient had been hospitalized within the past 6 months for urinary tract infection. There was no evidence of infection at this time. Family at this time wishes for the patient to be discharged and have the biopsy done as an outpatient. Radiology was contacted. Radiology recommended fine-needle aspiration liver biopsy by ultrasound-guided process. This will likely be done in the next week. Once results have been obtained then her PCP can send her to oncology for a definitive plan of care. Patient also found to have left portal vein thrombus. This is likely old. Patient will need anti coagulation therapy after biopsy is done. This was discussed with her PCP Dr. Lino. Her PCP will start anti coagulation therapy after biopsy done. Patient has hypothyroidism. She will continue with Levoxyl 100 mcg daily. Patient has anemia. She will continue with iron 325 mg 1 pill daily. Patient has GERD. She will continue with Prilosec 20 mg 1 pill once daily. Patient likely has chronic renal disease. Renal function stable this time. At discharge Lasix has been discontinued. Patient has hyperlipidemia. Pravastatin has been discontinued due to findings. Vital Signs/Physical Exam: Temp Pulse Resp BP Pulse Ox 97.5 F 75 16 129/60 95 01/25/18 12:00 01/25/18 12:00 01/25/18 12:00 01/25/18 12:01/25/18 12:00 General: Alert, In no apparent distress, Oriented x3, Cooperative HEENT: Atraumatic Neck: Supple Respiratory: Clear to auscultation bilaterally, Normal air movement Cardiovascular: Normal pulses, Regular rate/rhythm Gastrointestinal: Normal bowel sounds, Soft and benign, Non-distended, No tenderness, No masses, No rebound, No guarding Musculoskeletal: No erythema, No tenderness, No warmth Integumentary: No tenderness/swelling, No erythema, No warmth, No cyanosis Neurological: Normal speech, Normal strength at 5/5 x4 extr, Normal tone, Normal affect Laboratory Data at Discharge: WBC 10.5 K/uL (4.3-10.9) 01/25/18 04:34 Hgb 11.4 g/dL (12.0-15.0) L 01/25/18 04:34 Hct 33.7 % (36.0-45.0) L 01/25/18 04:34 Plt Count 361 K/uL (152-406) 01/25/18 04:34 PT 13.5 SECONDS (9.5-12.5) H 01/25/18 04:34 INR 1.14 01/25/18 04:34 Sodium 137 mmol/L (136-145) 01/25/18 04:34 Potassium 4.2 mmol/L (3.5-5.1) 01/25/18 04:34 BUN 17 mg/dL (7-18) 01/25/18 04:34 Creatinine 1.20 mg/dL (0.55-1.3) 01/25/18 04:34 Glucose 105 mg/dL (74-106) 01/25/18 04:34 Phosphorus 3.2 mg/dL (2.5-4.9) 01/25/18 04:34 Magnesium 2.3 mg/dL (1.8-2.4) 01/25/18 04:34 Total Bilirubin 0.4 mg/dL (0.2-1.0) 01/25/18 04:34 AST 39 U/L (15-37) H 01/25/18 04:34 ALT 27 U/L (12-78) 01/25/18 04:34 Alkaline Phosphatase 143 U/L (45-117) H 01/25/18 04:34 Amylase 59 U/L (25-115) 01/24/18 01:55 Lipase 164 U/L (73-393) 01/24/18 01:55 Home Medications: Docusate Sodium 100 mg PO BID 01/24/18 Ferrous Sulfate 325 mg PO DAILY 01/24/18 Levothyroxine Sodium 100 mcg PO DAILY 01/24/18 Mag Hydroxide 8% [Milk Of Magnesia*] 30 ml PO Q6HP PRN 01/24/18 Omeprazole 20 mg PO DAILY 01/24/18 Enoxaparin Sodium [Lovenox 60 MG INJ] 60 mg SQ BID #12 syr 01/25/18 traMADol HCL [Ultram*] 50 mg PO TID PRN #20 tab 01/25/18 New Medications: Enoxaparin Sodium [Lovenox 60 MG INJ] 60 mg SQ BID #12 syr traMADol HCL [Ultram*] 50 mg PO TID PRN #20 tab PRN Reason: Pain Patient Discharge Instructions: 1. Patient will return to assisted living facility. 2. Patient found to have abnormal CT scan showing multiple abnormalities to the lung, liver and kidney. This is suspicious for carcinoma stage IV. Patient will need to have an outpatient fine-needle aspiration liver [id number]. This will be arranged prior to discharge. Hopefully this can be done tomorrow. 3. Patient also found to have left portal vein thrombus. Patient will need anti coagulation therapy after biopsy is done. This was discussed with her PCP Dr. Lino. 4. Patient has hypothyroidism. She will continue with Levoxyl 100 mcg daily. 5. Patient has anemia. She will continue with iron 325 mg 1 pill daily. 6. Patient has GERD. She will continue with Prilosec 20 mg 1 pill once daily. 7. Patient likely has chronic renal disease. Renal function stable this time. At discharge Lasix has been discontinued. 8. Patient has hyperlipidemia. Pravastatin has been discontinued due to liver mass. Diet: Regular Activity: Ad marley Followup: Nilesh Lino MD [ACTIVE - CAN ADMIT] - Kandi Honeycutt MD [ACTIVE - CAN ADMIT] - Time spent managing pt's care (in minutes): 55
== END 2018-01-25 14:25 ==
LOC: ER 01:39 → ERHOLD 06:15 → INTOOBSV 06:15 → 2ND 07:52
PROVIDERS: ADMIT Hospitalist; ATTEND Hospitalist
DX: M54.2 Cervicalgia (principal); R53.1 Weakness; R93.8 Abnormal findings on diagnostic imaging of other specified body structures; E03.9 Hypothyroidism, unspecified; E78.5 Hyperlipidemia, unspecified; D64.9 Anemia, unspecified; K21.9 Gastro-esophageal reflux disease without esophagitis; I81 Portal vein thrombosis; R52 Pain, unspecified; C80.1 Malignant (primary) neoplasm, unspecified
CPT/HCPCS: 36415 ×2; 71260; 74176; 74177; 76377; 80048 ×2; 80053; 80076; 82150; 83690; 83735; 84100; 85025 ×2; 85610; 87086; 87088; 96374; 96375; 99285; J1650; J2270 ×3; J2405 ×3; J7030 ×3; Q9967; 81003; 81015